=== PATIENT | male | born 1985 | race Caucasian/White ===

== ENCOUNTER 2017-10-10 17:14 | Emergency (ER) | payer MEDICAID ==
[2017-10-10 19:24] VITALS: BP 134/89
== END 2017-10-10 19:24 | disposition home or self-care (01) ==
LOC: ED 17:14
DX: R07.89 Other chest pain (principal); R20.2 Paresthesia of skin
CPT/HCPCS: J1885; Q0092

== ENCOUNTER 2018-06-04 11:57 | Emergency (ER) | payer MEDICAID ==
[~2018-06-04] VITALS: Ht 162.6 cm; Wt 72.6 kg
[2018-06-04 12:10] VITALS: BP 147/95; Ht 162.6 cm; Wt 72.6 kg
== END 2018-06-04 13:13 | disposition home or self-care (01) ==
LOC: ED 11:57
DX: S13.9XXA Sprain of joints and ligaments of unspecified parts of neck, initial encounter (principal); M79.1 Myalgia; R07.89 Other chest pain; X58.XXXA Exposure to other specified factors, initial encounter; Y93.89 Activity, other specified; Y92.89 Other specified places as the place of occurrence of the external cause; Y99.8 Other external cause status

== ENCOUNTER 2019-09-19 04:26 | Emergency (ER) | payer MEDICAID ==
[~2019-09-19] VITALS: Ht 162.6 cm; Wt 68.9 kg
[2019-09-19 05:31] LABS: microscopic required? NO
[2019-09-19 05:40] LABS: UA SPECIFIC GRAVITY 1.015 (1.005-1.035); urine erythrocyte NEGATIVE (NEGATIVE)
[2019-09-19 06:16] VITALS: BP 118/74
== END 2019-09-19 06:16 | disposition home or self-care (01) ==
LOC: ED 04:26
PROVIDERS: Emergency Medicine
DX: B34.9 Viral infection, unspecified (principal); M79.10 Myalgia, unspecified site; R50.9 Fever, unspecified
CPT/HCPCS: 87804; J1885